=== PATIENT | female | born 1940 | race Caucasian/White ===

== ENCOUNTER 2019-01-09 21:53 | Inpatient (IN) | payer MEDICARE, OTHER ==
[~2019-01-09] VITALS: Ht 147.3 cm; Wt 65.5 kg
--- NOTE | 2019-01-09 22:29 | NUR ---
Patient laying on gurney, is nauseous and report 10/10 flank pain. She reports recent history of kidney stones.
[2019-01-09] MEDS ORDERED: ketorolac trometh. 30mg/ml inj. IV ONE (22:35)
[2019-01-09] MEDS ORDERED: normal saline 1000ML IV soln IVB ONE (22:35)
[2019-01-09] MEDS ORDERED: ondansetron/PF 4mg/2ml inj IV ONE (22:35)
[2019-01-09] MEDS ORDERED: morphine 4 MG/ML inj SYRINge IV PRN (22:35)
[2019-01-09 23:04] LABS: BASOPHILS # (AUTO) 0.1 X10'3 (0-0.2); BASOPHILS % (AUTO) 0.6 % (0-1); EOSINOPHILS # (AUTO) 0.1 X10'3 (0-0.9); HEMATOCRIT 40.2 % (35.0-45.0); HEMOGLOBIN 13.5 g/dl (12.0-16.0); LYMPHOCYTES # (AUTO) 1.6 X10'3 (1.1-4.8); LYMPHOCYTES % (AUTO) 15.1 % (21-51); MEAN CORPUSCULAR HEMOGLOBIN 28.7 PG (27.0-31.0); MEAN CORPUSCULAR HGB CONC 33.6 g/dL (33.0-36.5); MEAN CORPUSCULAR VOLUME 85.5 FL (78-98); MEAN PLATELET VOLUME 8.2 FL (7.4-10.4); MONOCYTES # (AUTO) 0.6 X10'3 (0-0.9); MONOCYTES % (AUTO) 5.7 % (2-12); NEUTROPHILS # (AUTO) 8.3 X10'3 (1.8-7.7); NEUTROPHILS % (AUTO) 77.6 % (42-75); PLATELET COUNT 324 X10'3 (140-440); RED CELL DISTRIBUTION WIDTH 14.2 % (11.5-14.5); WHITE BLOOD COUNT 10.6 X10'3 (4.5-11.0)
--- NOTE | 2019-01-09 23:16 | NUR ---
Patient up to bathroom
[2019-01-09 23:20] LABS: ALANINE AMINOTRANSFERASE 31 U/L (12-78); ALBUMIN/GLOBULIN RATIO 1.1 (1.1-1.5); ALKALINE PHOSPHATASE 175 IU/L (46-116); ANION GAP 12 (8-16); ASPARTATE AMINO TRANSFERASE 18 U/L (10-37); BILIRUBIN,TOTAL 0.5 MG/DL (0.1-1.0); BLOOD UREA NITROGEN 18 MG/DL (7-18); BUN/CREATININE RATIO 20.5 (6.6-38.0); CALCIUM 9.2 MG/DL (8.5-10.1); CHLORIDE 105 MMOL/L (99-107); CREATININE 0.88 MG/DL (0.40-0.90); GLUCOSE 251 MG/DL (70-104); LIPASE 164 U/L (73-393); SODIUM 141 MMOL/L (135-145); TOTAL CARBON DIOXIDE 24.3 MMOL/L (24-32); TOTAL PROTEIN 7.5 G/DL (6.4-8.2); eGFR 62 ML/MIN
[2019-01-09 23:29] LABS: POTASSIUM 4.5 MMOL/L (3.5-5.1)
[2019-01-09 23:47] LABS: CLARITY,URINE CLOUDY (Clear); COLOR,URINE RED (Yellow); GLUCOSE, URINE 250 mg/dl (Neg); KETONES,URINE 15 mg/dl (Neg); LEUKOCYTE ESTERASE ,URINE NEGATIVE (Neg); NITRITES, URINE NEGATIVE (Neg); OCCULT BLOOD,URINE LARGE (Neg); PH,URINE 6.5 (4.8-8.0); PROTEIN,URINE 100 mg/dl (Neg)
[2019-01-09 23:48] LABS: UA COLLECTION TYPE VOIDED
--- NOTE | 2019-01-09 23:57 | NUR ---
Back from CT.
[2019-01-09 23:59] LABS: BACTERIA,URINE FEW /HPF (Neg); MUCUS STRANDS NONE SEEN /LPF (Neg); RBC,URINE TNTC /HPF (0-2); SQUAMOUS EPITHELIAL CELL,UR FEW /LPF (FEW); WBC,URINE 0-4 /HPF (0-4)
[2019-01-10] MEDS ORDERED: morphine 4 MG/ML inj SYRINge IV ONE (01:15)
[2019-01-10] MEDS ORDERED: magnesium 4gm in 100ml NS 100 ML IV PRN (01:25)
[2019-01-10] MEDS ORDERED: magnesium hydroxide 30ml (MOM) UD suspension PO PRN (01:25)
[2019-01-10] MEDS ORDERED: potassium CL 10mEq/100ml bag 100 ML IV PRN ×2 (01:25)
[2019-01-10] MEDS ORDERED: HYDROcodone/acetaminophen 5mg/325mg tablet PO PRN (01:25)
[2019-01-10] MEDS ORDERED: acetaminophen 325mg tablet PO PRN ×2 (01:25)
[2019-01-10] MEDS ORDERED: potassium Cl 20 mEq SR tablet PO PRN ×2 (01:25)
[2019-01-10] MEDS ORDERED: magnesium Cl slow-release 64mg tablet PO PRN (01:25)
[2019-01-10] MEDS ORDERED: morphine 2 MG/ML inj. syringe IV PRN (01:25)
[2019-01-10] MEDS ORDERED: magnesium 2GM in 50ml NS 50 ML IV PRN (01:25)
--- NOTE | 2019-01-10 01:47 | NUR ---
Patient with hospitalist, pending admit
[2019-01-10] MEDS ORDERED: METF500T PO (01:50)
[2019-01-10] MEDS ORDERED: ASPI-611 PO (01:50)
[2019-01-10] MEDS ORDERED: CARV-49 PO (01:50)
[2019-01-10] MEDS ORDERED: CLOP75TA15 PO (01:50)
[2019-01-10] MEDS ORDERED: MESSAGE TO PHARMACY PO ONE (02:55)
[2019-01-10] MEDS ORDERED: dextrose 50%-water 50ml dispensing syringe IV PRN ×2 (02:55)
[2019-01-10] MEDS ORDERED: dextrose ORAL solution 15 GM/59 ML bottle PO PRN ×2 (02:55)
[2019-01-10] MEDS ORDERED: glucagon, human recombinant 1mg kit SUBCUT PRN (02:55)
--- NOTE | 2019-01-10 03:13 | NUR ---
Received report from JULIO CESAR Ward. Awaiting patient arrival to the unit.
[2019-01-10] MEDS: ondansetron/PF 4mg/2ml inj IV PRN ×2 (03:19→09:52)
--- NOTE | 2019-01-10 03:25 | NUR ---
Patient arrived to the unit via wheelchair, placed in room 354C. Patient awake and alert on room air, in no apparent distress. Call light and items of frequent use within reach. Will continue to monitor.
[2019-01-10 03:30] VITALS: BP 158/64
[2019-01-10] MEDS ORDERED: pneumococcal 23-VAL P-sac vacc 25 mcg/0.5ml vial IMVAC ONE (04:35)
--- NOTE | 2019-01-10 06:00 | NUR ---
Patient in room EN[facility] 354. I have received report from Lorena HARRELL and had the opportunity to ask questions and assume patient care.
[2019-01-10 06:14] LABS: ALBUMIN 3.6 G/DL (3.4-5.0); ANION GAP 8 (8-16); BLOOD UREA NITROGEN 14 MG/DL (7-18); BUN/CREATININE RATIO 19.2 (6.6-38.0); CALCIUM 8.2 MG/DL (8.5-10.1); CHLORIDE 107 MMOL/L (99-107); CREATININE 0.73 MG/DL (0.40-0.90); GLUCOSE 216 MG/DL (70-104); POTASSIUM 4.6 MMOL/L (3.5-5.1); SODIUM 141 MMOL/L (135-145); TOTAL CARBON DIOXIDE 26.3 MMOL/L (24-32); eGFR 78 ML/MIN
--- NOTE | 2019-01-10 06:19 | NUR ---
Problems reprioritized. Patient report given, questions answered & plan of care reviewed with JULIO CESAR Marsh.
[2019-01-10 07:04] VITALS: BP 123/71
[2019-01-10] MEDS: clopidogrel 75mg tablet PO SCH (07:43)
[2019-01-10] MEDS: aspirin 81mg tablet.DR PO SCH (07:43)
[2019-01-10] MEDS: K and/or MAG REPLACEMENT MC SCH (07:43)
[2019-01-10] MEDS: HYDROcodone/acetaminophen 10/325mg tab PO PRN ×3 (08:12→20:01)
[2019-01-10] MEDS: carvedilol 6.25mg tablet PO SCH ×2 (08:12→19:59)
--- NOTE | 2019-01-10 08:38 | NUR ---
DM Consult: Pt A1C 7.0; admit w/ kidney stone and 04/26 pain per EMR. Will need DM ed once stable prior to d/c. Addendum: 01/10/19 at [address] Amended: Links added.
--- NOTE | 2019-01-10 11:12 | NUR ---
07 Dr. Alcantar paged regarding pt not having diet order and has no IV fluids ordered. Awaiting call back. [phone] paged again regarding above. Awaiting call back. in to see patient and ordered flomax, NPO, and IVF @ 100, urology consult. Addendum: 01/10/19 at 1226 by Salma Borrego RN also stated okay to hold plavix at this time.
[2019-01-10] MEDS: tamsulosin 0.4mg capsule PO SCH ×3 (11:14→19:59)
[2019-01-10] MEDS: normal saline 1000ml 1,000 ML IV SCH ×2 (11:15→21:00)
[2019-01-10 11:27] VITALS: BP 151/55
[2019-01-10] MEDS: insulin Lispro (HumaLOG) vial - multi-dose SQ SCH ×2 (12:32→18:50)
[2019-01-10] MEDS: proCHLORperazine 10 MG/2 ml inj IV PRN (14:04)
--- NOTE | 2019-01-10 18:32 | NUR ---
Patient in room ENIO 354. I have received report from Salma HARRELL and had the opportunity to ask questions and assume patient care.
--- NOTE | 2019-01-10 18:34 | NUR ---
Problems reprioritized. Patient report given, questions answered & plan of care reviewed with Fanny HARRELL.
[2019-01-10 20:00] VITALS: BP 108/50
[2019-01-10] MEDS: insulin glargine (Lantus) pen - multi-dose SQ SCH (21:10)
[2019-01-10] MEDS: mag hydrox/Alum hydrox/simeth 30ml oral suspension PO PRN (21:10)
[2019-01-11] VITALS (17 sets, daily range): BP systolic 98–182; BP diastolic 44–86
[2019-01-11 05:59] LABS: ALBUMIN 2.9 G/DL (3.4-5.0); ANION GAP 8 (8-16); BLOOD UREA NITROGEN 10 MG/DL (7-18); BUN/CREATININE RATIO 13.7 (6.6-38.0); CALCIUM 8.1 MG/DL (8.5-10.1); CHLORIDE 110 MMOL/L (99-107); CREATININE 0.73 MG/DL (0.40-0.90); GLUCOSE 138 MG/DL (70-104); MAGNESIUM 2.1 MG/DL (1.5-2.4); POTASSIUM 3.7 MMOL/L (3.5-5.1); SODIUM 144 MMOL/L (135-145); TOTAL CARBON DIOXIDE 26.2 MMOL/L (24-32); eGFR 78 ML/MIN
[2019-01-11] MEDS: normal saline 1000ml 1,000 ML IV SCH ×2 (06:04→20:27)
--- NOTE | 2019-01-11 06:17 | NUR ---
Problems reprioritized. Patient report given, questions answered & plan of care reviewed with Franchesca HARRELL.
[2019-01-11 06:20] LABS: BASOPHILS % (AUTO) 0.6 % (0-1); EOSINOPHILS # (AUTO) 0.2 X10'3 (0-0.9); EOSINOPHILS % (AUTO) 3.4 % (0-6); HEMATOCRIT 33.4 % (35.0-45.0); LYMPHOCYTES # (AUTO) 2.1 X10'3 (1.1-4.8); MEAN CORPUSCULAR HEMOGLOBIN 28.7 PG (27.0-31.0); MEAN CORPUSCULAR HGB CONC 32.9 g/dL (33.0-36.5); MEAN PLATELET VOLUME 8.2 FL (7.4-10.4); MONOCYTES # (AUTO) 0.6 X10'3 (0-0.9); MONOCYTES % (AUTO) 9.7 % (2-12); NEUTROPHILS % (AUTO) 51.3 % (42-75); PLATELET COUNT 260 X10'3 (140-440); RED BLOOD COUNT 3.84 X10'6 (4.20-5.60); WHITE BLOOD COUNT 5.9 X10'3 (4.5-11.0)
[2019-01-11] MEDS: K and/or MAG REPLACEMENT MC SCH (07:00)
[2019-01-11] MEDS: aspirin 81mg tablet.DR PO SCH (08:00)
[2019-01-11] MEDS: clopidogrel 75mg tablet PO SCH (08:00)
[2019-01-11] MEDS: carvedilol 6.25mg tablet PO SCH ×2 (08:46→20:36)
[2019-01-11 12:50] LABS: ALANINE AMINOTRANSFERASE 22 U/L (12-78); ALBUMIN 3.1 G/DL (3.4-5.0); ALBUMIN/GLOBULIN RATIO 1.1 (1.1-1.5); ALKALINE PHOSPHATASE 118 IU/L (46-116); ANION GAP 8 (8-16); ASPARTATE AMINO TRANSFERASE 13 U/L (10-37); BILIRUBIN,TOTAL 0.3 MG/DL (0.1-1.0); BLOOD UREA NITROGEN 7 MG/DL (7-18); CALCIUM 7.8 MG/DL (8.5-10.1); CHLORIDE 110 MMOL/L (99-107); GLUCOSE 130 MG/DL (70-104); POTASSIUM 3.9 MMOL/L (3.5-5.1); SODIUM 144 MMOL/L (135-145); TOTAL CARBON DIOXIDE 26.4 MMOL/L (24-32); eGFR 81 ML/MIN
[2019-01-11 13:23] LABS: PARTIAL THROMBOPLASTIN TIME 27 SECONDS (22-32)
[2019-01-11] MEDS ORDERED: ringers solution, lacted 1,000 ML IV SCH (17:01)
[2019-01-11] MEDS ORDERED: proCHLORperazine 10 MG/2 ml inj IV PRN (17:05)
[2019-01-11] MEDS ORDERED: meperidine/PF 25mg/ml syringe IV PRN ×3 (17:05)
[2019-01-11] MEDS ORDERED: morphine 4 MG/ML inj SYRINge IV PRN ×2 (17:05)
[2019-01-11] MEDS ORDERED: ondansetron/PF 4mg/2ml inj IV PRN (17:05)
[2019-01-11] MEDS ORDERED: sevoflurane 250ml liquid IH ONE (17:12)
[2019-01-11] MEDS ORDERED: propofol inj 20 ML IV ONE (17:17)
[2019-01-11] MEDS ORDERED: midazolam 2 mg/2 ml injection ONE (17:17)
[2019-01-11] MEDS ORDERED: fentaNYL/PF 50MCG/1 ML 2ML syringe ONE (17:17)
[2019-01-11] MEDS ORDERED: ceFAZolin 1000mg inj ONE ×2 (17:45)
--- NOTE | 2019-01-11 17:55 | NUR ---
ADMITTED TO PACU FROM OR ACCOMPANIED BY ANESTHESIA. INTIAL PHYSICAL ASSESSMENT DONE AND RECORDED. AWAKE AND RESPONSE ON ARRIVE YO PACU, REPORT RECEIVED FROM ANESTHESIA.
[2019-01-11] MEDS ORDERED: HYDROcodone/acetaminophen 10/325mg tab PO ONE (18:20)
--- NOTE | 2019-01-11 18:45 | NUR ---
PACU DISCHARGE CRITERIA MET, REPORT GIVEN TO FLOOR. DENIES PAIN OR DISCOMFORT, TRANSFERRED TO ROOM IN STABLE GOOD CONDITION.
--- NOTE | 2019-01-11 18:45 | NUR ---
Patient in room EN[facility] 354. I have received report from Franchesca HARRELL and had the opportunity to ask questions and assume patient care. Patient is in OR at this time, will continue to monitor.
--- NOTE | 2019-01-11 18:50 | NUR ---
Received report from Cyndi HARRELL, will assess patient when she arrives to unit. Will continue to monitor.
[2019-01-11] MEDS: ondansetron/PF 4mg/2ml inj IV PRN (20:26)
[2019-01-11] MEDS: morphine 2 MG/ML inj. syringe IV PRN (20:26)
[2019-01-11] MEDS: tamsulosin 0.4mg capsule PO SCH (20:36)
[2019-01-11] MEDS: insulin glargine (Lantus) pen - multi-dose SQ SCH (21:00)
[2019-01-11] MEDS ORDERED: phenazopyridine 100mg tablet PO PRN ×2 (21:25→22:00)
--- NOTE | 2019-01-11 21:27 | NUR ---
Patient is having burning after procedure, notified Dr. Mohan, received order for pryidium as needed. Will continue to monitor.
[2019-01-11] MEDS ORDERED: oxybutynin 5mg tablet PO PRN (22:00)
--- NOTE | 2019-01-11 22:00 | NUR ---
Called Dr. Oden to request advice on pain medications for bladder related pain, received order for ditropan & Prydium PRN. Will continue to monitor.
[2019-01-11] MEDS: mag hydrox/Alum hydrox/simeth 30ml oral suspension PO PRN (22:25)
[2019-01-11] MEDS: HYDROcodone/acetaminophen 10/325mg tab PO PRN (22:26)
[2019-01-12] VITALS: BP 153/58
[2019-01-12] MEDS ORDERED: hydrALAZINE 20mg/ml inj. IV PRN (00:35)
[2019-01-12] MEDS: morphine 2 MG/ML inj. syringe IV PRN ×4 (01:37→15:13)
[2019-01-12] MEDS: ondansetron/PF 4mg/2ml inj IV PRN ×3 (02:33→18:43)
[2019-01-12] MEDS: proCHLORperazine 10 MG/2 ml inj IV PRN (03:02)
[2019-01-12] MEDS: normal saline 1000ml 1,000 ML IV SCH ×3 (05:16→23:05)
[2019-01-12] MEDS ORDERED: LIDOcaine 2% 10ml TOPICAL JELLY (Urojet) MM ONE (05:20)
[2019-01-12 05:58] LABS: BASOPHILS % (AUTO) 0.3 % (0-1); EOSINOPHILS % (AUTO) 0.3 % (0-6); HEMATOCRIT 37.5 % (35.0-45.0); HEMOGLOBIN 12.6 g/dl (12.0-16.0); LYMPHOCYTES # (AUTO) 0.8 X10'3 (1.1-4.8); LYMPHOCYTES % (AUTO) 9.2 % (21-51); MEAN CORPUSCULAR HEMOGLOBIN 28.7 PG (27.0-31.0); MEAN CORPUSCULAR HGB CONC 33.6 g/dL (33.0-36.5); MEAN CORPUSCULAR VOLUME 85.3 FL (78-98); MEAN PLATELET VOLUME 7.7 FL (7.4-10.4); MONOCYTES # (AUTO) 0.4 X10'3 (0-0.9); MONOCYTES % (AUTO) 4.1 % (2-12); NEUTROPHILS # (AUTO) 7.3 X10'3 (1.8-7.7); NEUTROPHILS % (AUTO) 86.1 % (42-75); PLATELET COUNT 270 X10'3 (140-440); RED CELL DISTRIBUTION WIDTH 14.1 % (11.5-14.5); WHITE BLOOD COUNT 8.5 X10'3 (4.5-11.0)
[2019-01-12 06:15] LABS: ALBUMIN 3.4 G/DL (3.4-5.0); ANION GAP 11 (8-16); BLOOD UREA NITROGEN 6 MG/DL (7-18); BUN/CREATININE RATIO 10.2 (6.6-38.0); CALCIUM 7.9 MG/DL (8.5-10.1); CHLORIDE 103 MMOL/L (99-107); CREATININE 0.59 MG/DL (0.40-0.90); GLUCOSE 188 MG/DL (70-104); MAGNESIUM 1.8 MG/DL (1.5-2.4); POTASSIUM 3.6 MMOL/L (3.5-5.1); SODIUM 138 MMOL/L (135-145); TOTAL CARBON DIOXIDE 23.9 MMOL/L (24-32); eGFR > 90 ML/MIN
--- NOTE | 2019-01-12 06:45 | NUR ---
Patient in room ENIO 354. I have received report from Karey HARRELL and had the opportunity to ask questions and assume patient care.
[2019-01-12 07:00] VITALS: BP 143/70
[2019-01-12] MEDS: K and/or MAG REPLACEMENT MC SCH (08:00)
[2019-01-12] MEDS: aspirin 81mg tablet.DR PO SCH (09:07)
[2019-01-12] MEDS: clopidogrel 75mg tablet PO SCH (09:08)
[2019-01-12] MEDS: carvedilol 6.25mg tablet PO SCH ×2 (09:08→20:43)
[2019-01-12 11:00] VITALS: BP 140/49
--- NOTE | 2019-01-12 14:06 | NUR ---
Initial: Pt admit with kidney stone now s/p left ureteral stent placement. Pt seen at bedside states her usual A1c is 6.1 and that she was previously seeing a DM counselor however they are no longer available and that she had an appointment set up to see an MD about DM however will have to reschedule d/t this admit. Pt provided with written and verbal DM ed with referral to outpatient DM class. All of patient's questions were answered at this time. RD contact information provided. Pt endorses a low appetite since admit. Pt documented with 50% PO intake on clear liquid diet for dinner last night however diet has since been advanced to CHO controlled, pending documentation of PO intake. Pt reports low PO intake at breakfast this morning r/t pain. Pt with no food preferences at this time however states she dislikes melons and likes pineapple, d/w dietary. Pt denies any food allergies or difficulty chewing/swallowing. LBM 01/09, pt denies nutrition therapy for constipation at this time. Will continue to follow. Recommendations: 1) Continue CHO controlled diet 2) Monitor need for additional bowel care 3) Wt per rx Addendum: 01/12/19 at [address] Amended: Links added.
--- NOTE | 2019-01-12 18:25 | NUR ---
Problems reprioritized. Patient report given, questions answered & plan of care reviewed with Karey HARRELL.
--- NOTE | 2019-01-12 18:30 | NUR ---
Patient in room EN[facility] 354. I have received report from Alex HARRELL and had the opportunity to ask questions and assume patient care. Patient resting in bed, respirations even. Will continue to monitor.
[2019-01-12] MEDS: HYDROcodone/acetaminophen 10/325mg tab PO PRN (18:43)
[2019-01-12 20:00] VITALS: BP 144/59
[2019-01-12] MEDS: mag hydrox/Alum hydrox/simeth 30ml oral suspension PO PRN (20:42)
[2019-01-12] MEDS: tamsulosin 0.4mg capsule PO SCH (20:43)
[2019-01-12] MEDS: insulin glargine (Lantus) pen - multi-dose SQ SCH (21:00)
[2019-01-13] VITALS: BP 139/62
[2019-01-13] MEDS: normal saline 1000ml 1,000 ML IV SCH (00:50)
--- NOTE | 2019-01-13 03:00 | NUR ---
Patient's IV leaking, removed, and patient refused new IV to be placed. Will continue to monitor.
[2019-01-13] MEDS: HYDROcodone/acetaminophen 10/325mg tab PO PRN ×2 (03:55→08:50)
--- NOTE | 2019-01-13 04:20 | NUR ---
Patient has had less output, bladder scan shows 175ml, denies discomfort and needs at this time, will continue to monitor.
[2019-01-13 05:17] LABS: BASOPHILS % (AUTO) 0.5 % (0-1); EOSINOPHILS # (AUTO) 0.1 X10'3 (0-0.9); EOSINOPHILS % (AUTO) 1.9 % (0-6); HEMATOCRIT 33.3 % (35.0-45.0); HEMOGLOBIN 11.3 g/dl (12.0-16.0); LYMPHOCYTES # (AUTO) 1.5 X10'3 (1.1-4.8); LYMPHOCYTES % (AUTO) 26.9 % (21-51); MEAN CORPUSCULAR VOLUME 85.3 FL (78-98); MEAN PLATELET VOLUME 7.5 FL (7.4-10.4); MONOCYTES # (AUTO) 0.7 X10'3 (0-0.9); MONOCYTES % (AUTO) 12.6 % (2-12); NEUTROPHILS # (AUTO) 3.1 X10'3 (1.8-7.7); NEUTROPHILS % (AUTO) 58.1 % (42-75); PLATELET COUNT 246 X10'3 (140-440); WHITE BLOOD COUNT 5.4 X10'3 (4.5-11.0)
[2019-01-13 05:29] LABS: ALBUMIN 2.9 G/DL (3.4-5.0); ANION GAP 7 (8-16); BLOOD UREA NITROGEN 7 MG/DL (7-18); BUN/CREATININE RATIO 10.8 (6.6-38.0); CALCIUM 7.6 MG/DL (8.5-10.1); CHLORIDE 108 MMOL/L (99-107); CREATININE 0.65 MG/DL (0.40-0.90); GLUCOSE 147 MG/DL (70-104); MAGNESIUM 2.1 MG/DL (1.5-2.4); POTASSIUM 3.6 MMOL/L (3.5-5.1); SODIUM 141 MMOL/L (135-145); TOTAL CARBON DIOXIDE 25.8 MMOL/L (24-32); eGFR 89 ML/MIN
[2019-01-13 06:00] VITALS: BP 138/62
--- NOTE | 2019-01-13 06:33 | NUR ---
Problems reprioritized. Patient report given, questions answered & plan of care reviewed with Carmelita HARRELL. Patient resting respirations even.
[2019-01-13] MEDS: clopidogrel 75mg tablet PO SCH (07:53)
[2019-01-13] MEDS: carvedilol 6.25mg tablet PO SCH (07:53)
[2019-01-13] MEDS: aspirin 81mg tablet.DR PO SCH (07:53)
[2019-01-13] MEDS: K and/or MAG REPLACEMENT MC SCH (08:00)
[2019-01-13] MEDS ORDERED: HYDR-4383 PO (08:29)
[2019-01-13] MEDS ORDERED: SULF1TAB49 PO (08:29)
[2019-01-13] MEDS: mag hydrox/Alum hydrox/simeth 30ml oral suspension PO PRN (08:49)
--- NOTE | 2019-01-13 10:15 | NUR ---
PROVIDED PATIENT WITH DISCHARGE INSTRUCTIONS WELL PACKET. NEW ANTIBIOTIC MEDICATION EXPLAINED TO PATIENT AND CALLED INTO [facility] IN [place], AND PATIENT PROVIDED WITH PHYSICAL RX FOR NORCO WHICH DR. VALENZUELA WROTE. PATIENT AWARE OF RECOMMENDATION TO FOLLOW UP WITH DR. GIMENEZ IN 2 WEEKS. DOES NOT HAVE IV. PATIENT DENIES ANY FURTHER QUESTIONS OR CONCERNS. WAITING FOR HER RIDE WHICH IS SUPPOSED TO BE HERE AT 1030.
== END 2019-01-13 11:00 | disposition home or self-care (01) | DRG 661 ==
LOC: ER 22:23 → SUR 3N 01-10 03:51 → CMPBEDREQ 01-10 19:35
PROVIDERS: ADMIT Hospitalist; ATTEND Internal Medicine
PROC: 0T778DZ Dilation of Left Ureter with Intraluminal Device, Via Natural or Artificial Opening Endoscopic (ICD-10-PCS; principal; 2019-01-11 17:12)
DX: N13.2 Hydronephrosis with renal and ureteral calculous obstruction (principal); E11.9 Type 2 diabetes mellitus without complications; E78.00 Pure hypercholesterolemia, unspecified; I10 Essential (primary) hypertension; I25.10 Atherosclerotic heart disease of native coronary artery without angina pectoris; N32.89 Other specified disorders of bladder; Z79.02 Long term (current) use of antithrombotics/antiplatelets; Z79.82 Long term (current) use of aspirin; Z87.442 Personal history of urinary calculi; Z87.891 Personal history of nicotine dependence; Z95.1 Presence of aortocoronary bypass graft; Z79.84 Long term (current) use of oral hypoglycemic drugs; Z79.899 Other long term (current) drug therapy
CPT/HCPCS: 36415; 71045; 74176; 76000; 80048; 80053; 81001; 82948; 83036; 83690; 83735; 85025; 85610; 85730; 87081; 93005; 96374; 96375; 96376; 99285; A4402; A4618; C1758; C1769; C2617; G0378; J0360; J0690; J0780; J1815; J1885; J2250; J2270; J2405; J2704; J3010; J7030; J7120

== ENCOUNTER 2019-02-25 07:50 | Inpatient (IN) | payer MEDICARE ==
[~2019-02-25] VITALS: Ht 147.3 cm; Wt 63.0 kg
[~2019-02-25 07:50] MED LIST: ASPI-611 PO; CARV-49 PO; CLOP75TA15 PO; HYDR-4383 PO; METF500T PO
[2019-02-25] MEDS ORDERED: ondansetron/PF 4mg/2ml inj IV ONE ×2 (08:20→11:55)
[2019-02-25] MEDS ORDERED: normal saline 1000ML IV soln IVB ONE (08:20)
[2019-02-25] MEDS: morphine 4 MG/ML inj SYRINge IV PRN ×2 (08:53→09:15)
[2019-02-25 09:09] LABS: BASOPHILS % (AUTO) 0.3 % (0-1); EOSINOPHILS # (AUTO) 0.1 X10'3 (0-0.9); EOSINOPHILS % (AUTO) 0.7 % (0-6); HEMATOCRIT 36.3 % (35.0-45.0); HEMOGLOBIN 12.4 g/dl (12.0-16.0); LYMPHOCYTES # (AUTO) 1.4 X10'3 (1.1-4.8); LYMPHOCYTES % (AUTO) 15.3 % (21-51); MEAN CORPUSCULAR HEMOGLOBIN 28.9 PG (27.0-31.0); MEAN CORPUSCULAR HGB CONC 34.3 g/dL (33.0-36.5); MEAN CORPUSCULAR VOLUME 84.2 FL (78-98); MEAN PLATELET VOLUME 7.8 FL (7.4-10.4); MONOCYTES # (AUTO) 0.8 X10'3 (0-0.9); MONOCYTES % (AUTO) 8.9 % (2-12); NEUTROPHILS # (AUTO) 6.8 X10'3 (1.8-7.7); NEUTROPHILS % (AUTO) 74.8 % (42-75); PLATELET COUNT 297 X10'3 (140-440); RED BLOOD COUNT 4.31 X10'6 (4.20-5.60); RED CELL DISTRIBUTION WIDTH 13.4 % (11.5-14.5); WHITE BLOOD COUNT 9.1 X10'3 (4.5-11.0)
[2019-02-25 09:42] LABS: ALANINE AMINOTRANSFERASE 22 U/L (12-78); ALBUMIN 3.6 G/DL (3.4-5.0); ALBUMIN/GLOBULIN RATIO 0.9 (1.1-1.5); ALKALINE PHOSPHATASE 126 IU/L (46-116); ANION GAP 12 (8-16); ASPARTATE AMINO TRANSFERASE 15 U/L (10-37); BILIRUBIN,TOTAL 0.4 MG/DL (0.1-1.0); BLOOD UREA NITROGEN 16 MG/DL (7-18); BUN/CREATININE RATIO 13.2 (6.6-38.0); CALCIUM 8.7 MG/DL (8.5-10.1); CHLORIDE 104 MMOL/L (99-107); CREATININE 1.21 MG/DL (0.40-0.90); GLUCOSE 171 MG/DL (70-104); LIPASE 168 U/L (73-393); POTASSIUM 4.1 MMOL/L (3.5-5.1); SODIUM 139 MMOL/L (135-145); TOTAL CARBON DIOXIDE 22.6 MMOL/L (24-32); TOTAL PROTEIN 7.4 G/DL (6.4-8.2); eGFR 43 ML/MIN
--- NOTE | 2019-02-25 10:49 | NUR ---
PT REFUSING JUJU ARANA AT THIS TIME STATES SHE WILL PROVIDE URINE SAMPLE AFTER DRINKING SOME WATER.
[2019-02-25 11:25] LABS: CLARITY,URINE CLEAR (Clear); COLOR,URINE STRAW (Yellow); GLUCOSE, URINE NEGATIVE (Neg); KETONES,URINE 15 mg/dl (Neg); LEUKOCYTE ESTERASE ,URINE NEGATIVE (Neg); NITRITES, URINE NEGATIVE (Neg); OCCULT BLOOD,URINE LARGE (Neg); PH,URINE 6.5 (4.8-8.0); PROTEIN,URINE 30 mg/dl (Neg); UROBILINOGEN,URINE 0.2 E.U/dL (0.2-1.0)
[2019-02-25 11:33] LABS: UA COLLECTION TYPE CLN CATCH MIDSTREAM
[2019-02-25 11:38] LABS: BACTERIA,URINE FEW /HPF (Neg); MUCUS STRANDS FEW /LPF (Neg); RBC,URINE 20-50 /HPF (0-2); SQUAMOUS EPITHELIAL CELL,UR FEW /LPF (FEW); WBC,URINE 0-4 /HPF (0-4)
[2019-02-25] MEDS ORDERED: ketorolac tromethamine 15mg/ml inj. IV ONE (11:55)
[2019-02-25] MEDS ORDERED: morphine 2 MG/ML inj. syringe IV PRN ×2 (13:50)
[2019-02-25] MEDS ORDERED: ondansetron/PF 4mg/2ml inj IV PRN (13:50)
[2019-02-25] MEDS ORDERED: HYDROcodone/acetaminophen 5mg/325mg tablet PO PRN (13:50)
[2019-02-25] MEDS ORDERED: mag hydrox/Alum hydrox/simeth 30ml oral suspension PO PRN (13:50)
[2019-02-25] MEDS ORDERED: magnesium hydroxide 30ml (MOM) UD suspension PO PRN (13:50)
[2019-02-25] MEDS ORDERED: acetaminophen 325mg tablet PO PRN (13:50)
[2019-02-25] MEDS ORDERED: MULT-933 PO (14:32)
--- NOTE | 2019-02-25 16:07 | NUR ---
attempted to call report to JULIO CESAR Morrison
[2019-02-25] MEDS: normal saline 1000ml 1,000 ML IV SCH (16:59)
[2019-02-25 17:31] VITALS: BP 125/53
--- NOTE | 2019-02-25 17:32 | NUR ---
Received report from JULIO CESAR Carpio. Patient arrived to the floor. VSS. no complaints. Call light in reach.
[2019-02-25] MEDS ORDERED: metoclopramide 5 mg/ml inj IV PRN (18:00)
[2019-02-25] MEDS: HYDROcodone/acetaminophen 10/325mg tab PO PRN (18:27)
--- NOTE | 2019-02-25 18:30 | NUR ---
Problems reprioritized. Patient report given, questions answered & plan of care reviewed with JULIO CESAR RANDALL.
--- NOTE | 2019-02-25 18:43 | NUR ---
Received report from Laura HARRELL pt is finsihed with lis, on RA, in no apparent distress, bed alarm on Addendum: 02/25/19 at 1844 by Charu Ansari RN Wrong patient
--- NOTE | 2019-02-25 18:44 | NUR ---
Received report from Madison HARRELL pt is in bed, just given pain meds, call light and items of freq use within reach.
[2019-02-25 19:00] VITALS: BP 130/63
[2019-02-25] MEDS: metFORMIN 500mg tablet PO SCH (20:26)
[2019-02-25] MEDS: carvedilol 6.25mg tablet PO SCH (20:26)
[2019-02-25] MEDS ORDERED: tamsulosin 0.4mg capsule PO SCH (21:00)
[2019-02-26 00:30] VITALS: BP 116/57
[2019-02-26] MEDS: normal saline 1000ml 1,000 ML IV SCH (02:08)
[2019-02-26] MEDS: HYDROcodone/acetaminophen 10/325mg tab PO PRN (03:14)
[2019-02-26 06:08] LABS: ALBUMIN 2.8 G/DL (3.4-5.0); ANION GAP 8 (8-16); BLOOD UREA NITROGEN 9 MG/DL (7-18); BUN/CREATININE RATIO 7.1 (6.6-38.0); CALCIUM 7.8 MG/DL (8.5-10.1); CHLORIDE 108 MMOL/L (99-107); CREATININE 1.26 MG/DL (0.40-0.90); GLUCOSE 124 MG/DL (70-104); POTASSIUM 3.7 MMOL/L (3.5-5.1); SODIUM 140 MMOL/L (135-145); TOTAL CARBON DIOXIDE 23.8 MMOL/L (24-32); eGFR 41 ML/MIN
[2019-02-26 06:14] LABS: BASOPHILS % (AUTO) 0.4 % (0-1); EOSINOPHILS # (AUTO) 0.1 X10'3 (0-0.9); EOSINOPHILS % (AUTO) 1.6 % (0-6); HEMATOCRIT 29.7 % (35.0-45.0); HEMOGLOBIN 10.1 g/dl (12.0-16.0); LYMPHOCYTES # (AUTO) 1.5 X10'3 (1.1-4.8); LYMPHOCYTES % (AUTO) 20.7 % (21-51); MEAN CORPUSCULAR HEMOGLOBIN 29.4 PG (27.0-31.0); MEAN CORPUSCULAR HGB CONC 34.1 g/dL (33.0-36.5); MEAN CORPUSCULAR VOLUME 86.1 FL (78-98); MEAN PLATELET VOLUME 7.9 FL (7.4-10.4); MONOCYTES # (AUTO) 0.8 X10'3 (0-0.9); MONOCYTES % (AUTO) 10.7 % (2-12); NEUTROPHILS # (AUTO) 4.7 X10'3 (1.8-7.7); NEUTROPHILS % (AUTO) 66.6 % (42-75); PLATELET COUNT 231 X10'3 (140-440); RED BLOOD COUNT 3.45 X10'6 (4.20-5.60); RED CELL DISTRIBUTION WIDTH 13.2 % (11.5-14.5); WHITE BLOOD COUNT 7.1 X10'3 (4.5-11.0)
--- NOTE | 2019-02-26 06:16 | NUR ---
Gave report to Alex HARRELL pt is resting on RA, call light and items of freq use within reach.
--- NOTE | 2019-02-26 06:19 | NUR ---
Patient in room ENIO 346. I have received report from Jennifer HARRELL and had the opportunity to ask questions and assume patient care.
[2019-02-26 07:00] VITALS: BP 111/37
[2019-02-26] MEDS: metFORMIN 500mg tablet PO SCH (07:51)
[2019-02-26] MEDS: carvedilol 6.25mg tablet PO SCH (07:51)
[2019-02-26] MEDS ORDERED: clopidogrel 75mg tablet PO SCH (08:00)
[2019-02-26] MEDS ORDERED: multivitamins, therapeutics tablet PO SCH (08:00)
[2019-02-26] MEDS ORDERED: aspirin 81mg tab.chew PO SCH (08:30)
[2019-02-26] MEDS ORDERED: HYDR4TAB45 PO (10:22)
[2019-02-26 10:52] VITALS: BP 118/58
--- NOTE | 2019-02-26 13:10 | NUR ---
Discharged patient home. Discharge instructions given to patient, patient verbalized understanding of all instructions made. New prescription for Dilaudid given to patient. Peripheral IV catheter removed, tip intact. Instructed patient to ensure she has all her belongings with her before leaving.
== END 2019-02-26 13:22 | disposition home or self-care (01) | DRG 694 ==
LOC: ER 07:50 → ED HOLD 13:55 → SUR 3N 17:07
PROVIDERS: ADMIT Internal Medicine; ATTEND Internal Medicine
DX: N13.2 Hydronephrosis with renal and ureteral calculous obstruction (principal); E11.9 Type 2 diabetes mellitus without complications; E78.00 Pure hypercholesterolemia, unspecified; I10 Essential (primary) hypertension; I25.10 Atherosclerotic heart disease of native coronary artery without angina pectoris; Z79.82 Long term (current) use of aspirin; Z87.442 Personal history of urinary calculi; Z87.891 Personal history of nicotine dependence; Z79.02 Long term (current) use of antithrombotics/antiplatelets; Z95.1 Presence of aortocoronary bypass graft; Z79.84 Long term (current) use of oral hypoglycemic drugs
CPT/HCPCS: 36415; 74176; 80048; 80053; 81001; 82948; 83690; 85025; 87081; 96361; 96374; 96375; 96376; 99285; G0378; J1885; J2270; J2405; J7030

== ENCOUNTER 2019-04-03 20:27 | Emergency (ER) | payer MEDICARE ==
[~2019-04-03] VITALS: Ht 149.9 cm; Wt 63.6 kg
[~2019-04-03 20:27] MED LIST changes: -HYDR-4383 PO; +HYDR4TAB45 PO; +MULT-933 PO
--- NOTE | 2019-04-03 21:15 | NUR ---
pt unable to obtain a position of comfort.
[2019-04-03] MEDS ORDERED: cyclobenzaprine 10mg tablet PO ONE (21:30)
--- NOTE | 2019-04-03 21:36 | NUR ---
PT TO X RAY
--- NOTE | 2019-04-03 21:38 | NUR ---
PT BACK FROM XRAY TO BATHROOM NOW
--- NOTE | 2019-04-03 21:41 | NUR ---
[employer] GIVING PT EKG NOW
[2019-04-03] MEDS ORDERED: DICL100G15 TOP (22:04)
[2019-04-03] MEDS ORDERED: CYCL-1 PO (22:04)
[2019-04-03 22:22] VITALS: BP 102/68
== END 2019-04-03 22:16 | disposition home or self-care (01) ==
LOC: ER 20:27
DX: M54.9 Dorsalgia, unspecified (principal); I25.10 Atherosclerotic heart disease of native coronary artery without angina pectoris; E78.00 Pure hypercholesterolemia, unspecified; I12.9 Hypertensive chronic kidney disease with stage 1 through stage 4 chronic kidney disease, or unspecified chronic kidney disease; N18.9 Chronic kidney disease, unspecified; E11.8 Type 2 diabetes mellitus with unspecified complications; I25.810 Atherosclerosis of coronary artery bypass graft(s) without angina pectoris; Z98.61 Coronary angioplasty status; Z87.891 Personal history of nicotine dependence; Z91.5 Personal history of self-harm; F19.90 Other psychoactive substance use, unspecified, uncomplicated; Z79.899 Other long term (current) drug therapy
CPT/HCPCS: 71046; 93005; 99283

== ENCOUNTER 2019-04-05 17:57 | Emergency (ER) | payer MEDICARE ==
[~2019-04-05] VITALS: Ht 147.3 cm; Wt 61.7 kg
[~2019-04-05 17:57] MED LIST changes: +CYCL-1 PO; +DICL100G15 TOP
[2019-04-05 17:59] VITALS: BP 113/58
[2019-04-05] MEDS ORDERED: ketorolac trometh inj. 60 MG/2 ML VIAL IM ONE (18:20)
[2019-04-05] MEDS ORDERED: NAPR-56 PO (18:20)
== END 2019-04-05 18:51 | disposition home or self-care (01) ==
LOC: ER 17:58
DX: S46.911A Strain of unspecified muscle, fascia and tendon at shoulder and upper arm level, right arm, initial encounter (principal); I25.10 Atherosclerotic heart disease of native coronary artery without angina pectoris; E78.00 Pure hypercholesterolemia, unspecified; I10 Essential (primary) hypertension; E11.9 Type 2 diabetes mellitus without complications; F10.99 Alcohol use, unspecified with unspecified alcohol-induced disorder; Z87.442 Personal history of urinary calculi; Z95.1 Presence of aortocoronary bypass graft; Z79.82 Long term (current) use of aspirin; Z79.84 Long term (current) use of oral hypoglycemic drugs; Z79.899 Other long term (current) drug therapy; X58.XXXA Exposure to other specified factors, initial encounter; Y93.89 Activity, other specified; Y92.89 Other specified places as the place of occurrence of the external cause; Y99.8 Other external cause status; Y90.9 Presence of alcohol in blood, level not specified
CPT/HCPCS: 96372; 99283; J1885

== ENCOUNTER 2021-10-11 06:33 | Day surgery (SDC) | payer MEDICARE ==
[~2021-10-11] VITALS: Ht 149.9 cm; Wt 65.2 kg
[2021-10-11] VITALS (11 sets, daily range): BP systolic 105–166; BP diastolic 35–66
[2021-10-11] MEDS ORDERED: diphenhydrAMINE 25mg capsule PO PRN (07:05)
[2021-10-11] MEDS ORDERED: normal saline 1,000 ML IV SCH (07:05)
[2021-10-11] MEDS ORDERED: NITR0.4T48 SL (07:29)
[2021-10-11] MEDS ORDERED: METF-1203 PO (07:29)
[2021-10-11] MEDS ORDERED: ISOS30TA84 PO (07:29)
[2021-10-11] MEDS ORDERED: ROSU40TA PO (07:31)
[2021-10-11] MEDS ORDERED: OMEG1CAP13 PO (07:31)
[2021-10-11] MEDS ORDERED: METF-438 PO (07:33)
[2021-10-11] MEDS ORDERED: Magnesium PO (07:35)
[2021-10-11 07:40] LABS: BASOPHILS % (AUTO) 0.6 % (0-1); EOSINOPHILS # (AUTO) 0.2 X10'3 (0-0.9); EOSINOPHILS % (AUTO) 3.4 % (0-6); HEMATOCRIT 39.1 % (35.0-45.0); HEMOGLOBIN 13.1 g/dl (12.0-16.0); LYMPHOCYTES # (AUTO) 1.6 X10'3 (1.1-4.8); LYMPHOCYTES % (AUTO) 31.7 % (21-51); MEAN CORPUSCULAR HEMOGLOBIN 28.3 PG (27.0-31.0); MEAN CORPUSCULAR HGB CONC 33.6 g/dL (33.0-36.5); MEAN CORPUSCULAR VOLUME 84.2 FL (78-98); MEAN PLATELET VOLUME 7.7 FL (7.4-10.4); MONOCYTES # (AUTO) 0.5 X10'3 (0-0.9); MONOCYTES % (AUTO) 10.9 % (2-12); NEUTROPHILS # (AUTO) 2.6 X10'3 (1.8-7.7); NEUTROPHILS % (AUTO) 53.4 % (42-75); PLATELET COUNT 272 X10'3 (140-440); RED BLOOD COUNT 4.64 X10'6 (4.20-5.60); RED CELL DISTRIBUTION WIDTH 14.2 % (11.5-14.5); WHITE BLOOD COUNT 4.9 X10'3 (4.5-11.0)
[2021-10-11 08:01] LABS: ALBUMIN 3.8 G/DL (3.4-5.0); ANION GAP 8 (8-16); BLOOD UREA NITROGEN 12 MG/DL (7-18); BUN/CREATININE RATIO 14.3 (6.6-38.0); CALCIUM 8.6 MG/DL (8.5-10.1); CHLORIDE 107 MMOL/L (99-107); CREATININE 0.84 MG/DL (0.40-0.90); GLUCOSE 156 MG/DL (70-104); MAGNESIUM 2.1 MG/DL (1.5-2.4); POTASSIUM 4.1 MMOL/L (3.5-5.1); SODIUM 139 MMOL/L (135-145); TOTAL CARBON DIOXIDE 23.9 MMOL/L (24-32); eGFR 65 ML/MIN
[2021-10-11] MEDS ORDERED: iohexol 300mg/ml 100ml inj. ONE ×2 (09:03→09:58)
[2021-10-11] MEDS ORDERED: LIDOcaine 1% 30ml preserv. free vial ONE (09:04)
[2021-10-11] MEDS ORDERED: midazolam 1 mg/ML 2ml injection ONE (09:04)
[2021-10-11] MEDS ORDERED: heparin 1,000unit/ml 10ml vial 10 ML ONE (09:04)
[2021-10-11] MEDS ORDERED: fentaNYL/PF 50MCG/1 ML 2ML syringe ONE (09:04)
[2021-10-11] MEDS ORDERED: proCHLORperazine 10 MG/2 ml inj IV PRN (10:40)
[2021-10-11] MEDS ORDERED: HYDROcodone/acetaminophen 5mg/325mg tablet PO PRN (10:40)
[2021-10-11] MEDS ORDERED: ondansetron/PF 4mg/2ml inj IV PRN (10:40)
[2021-10-11] MEDS ORDERED: HYDROcodone/acetaminophen 10/325mg tab PO PRN (10:40)
[2021-10-11] MEDS ORDERED: acetaminophen 325mg tablet PO PRN (10:40)
== END 2021-10-11 13:58 | disposition home or self-care (01) ==
LOC: SSTAY O 06:33
PROVIDERS: ATTEND Internal Medicine Cardiovascular Disease
DX: R07.89 Other chest pain (principal); I25.118 Atherosclerotic heart disease of native coronary artery with other forms of angina pectoris; I65.23 Occlusion and stenosis of bilateral carotid arteries; I10 Essential (primary) hypertension; E78.5 Hyperlipidemia, unspecified; E11.9 Type 2 diabetes mellitus without complications; K21.9 Gastro-esophageal reflux disease without esophagitis; Z86.73 Personal history of transient ischemic attack (TIA), and cerebral infarction without residual deficits; Z79.84 Long term (current) use of oral hypoglycemic drugs; Z79.899 Other long term (current) drug therapy; Z95.1 Presence of aortocoronary bypass graft; Z87.442 Personal history of urinary calculi; Z87.891 Personal history of nicotine dependence
CPT/HCPCS: 36415; 80048; 82948; 83735; 85025; 85610; 93005; 93459; 99152; 99153; C1760; C1769; C1894; J1644; J2250; J3010; J3490; J7030; Q0163; Q9967; A4620; A6258

== ENCOUNTER 2024-07-11 09:27 | Day surgery (SDC) | payer MEDICARE ==
[~2024-07-11] VITALS: Ht 147.3 cm; Wt 69.3 kg
[2024-07-11] VITALS (9 sets, daily range): BP systolic 113–165; BP diastolic 46–64; PULSE 46–61; RESP 10–14; TEMP 98.5; O2SAT 96–99
[~2024-07-11 09:27] MED LIST changes: -DICL100G15 TOP; -HYDR4TAB45 PO; +ISOS30TA84 PO; +METF-438 PO; -METF500T PO; -MULT-933 PO; +Magnesium PO; +NITR0.4T48 SL; +OMEG-5 PO; +ROSU40TA PO
[2024-07-11 10:08] LABS: BASOPHILS % (AUTO) 0.6 % (0-1); EOSINOPHILS # (AUTO) 0.2 X10'3 (0-0.9); EOSINOPHILS % (AUTO) 3.3 % (0-6); HEMATOCRIT 33.5 % (35.0-45.0); HEMOGLOBIN 10.9 g/dl (12.0-16.0); LYMPHOCYTES # (AUTO) 1.5 X10'3 (1.1-4.8); LYMPHOCYTES % (AUTO) 26.1 % (21-51); MEAN CORPUSCULAR HEMOGLOBIN 27.4 PG (27.0-31.0); MEAN CORPUSCULAR HGB CONC 32.4 g/dL (33.0-36.5); MEAN CORPUSCULAR VOLUME 84.5 FL (78-98); MEAN PLATELET VOLUME 7.8 FL (7.4-10.4); MONOCYTES # (AUTO) 0.6 X10'3 (0-0.9); MONOCYTES % (AUTO) 9.6 % (2-12); NEUTROPHILS # (AUTO) 3.6 X10'3 (1.8-7.7); NEUTROPHILS % (AUTO) 60.4 % (42-75); PLATELET COUNT 256 X10'3 (140-440); RED BLOOD COUNT 3.97 X10'6 (4.20-5.60); RED CELL DISTRIBUTION WIDTH 15.5 % (11.5-14.5); WHITE BLOOD COUNT 5.9 X10'3 (4.5-11.0)
[2024-07-11 10:17] LABS: ALBUMIN 3.6 G/DL (3.4-5.0); ANION GAP 8 (8-16); BLOOD UREA NITROGEN 12 MG/DL (7-18); BUN/CREATININE RATIO 14.1 (10.0-20.0); CALCIUM 8.5 MG/DL (8.5-10.1); CHLORIDE 107 MMOL/L (99-107); CREATININE 0.85 MG/DL (0.40-0.90); GLUCOSE 155 MG/DL (70-104); POTASSIUM 4.3 MMOL/L (3.5-5.1); SODIUM 143 MMOL/L (135-145); TOTAL CARBON DIOXIDE 28.4 MMOL/L (24-32); eCRCL 34 ML/MIN; eGFR 64 ML/MIN
[2024-07-11] MEDS ORDERED: METO-395 PO (10:17)
[2024-07-11] MEDS ORDERED: KRIL1CAP40 PO (10:17)
[2024-07-11] MEDS ORDERED: PANT40TA54 PO (10:17)
[2024-07-11] MEDS ORDERED: METF-1203 PO (10:17)
[2024-07-11 10:19] LABS: PROTHROMBIN TIME 10.9 SECONDS (9.0-12.0)
[2024-07-11] MEDS: sodium bicarbonate 1meq/ml syr 150 ML in dextrose 5%-water 1,000 ML IV ONE (10:27)
[2024-07-11] MEDS: diphenhydrAMINE 25mg capsule PO PRN (10:27)
[2024-07-11] MEDS: normal saline 1,000 ML IV SCH (10:28)
[2024-07-11] MEDS ORDERED: LIDOcaine 1% 30ml preserv. free vial ONE (11:45)
[2024-07-11] MEDS ORDERED: verapamil 2.5 mg/ml inj IV ONE (11:45)
[2024-07-11] MEDS ORDERED: heparin 1,000unit/ml 10ml vial 10 ML ONE (11:46)
[2024-07-11] MEDS ORDERED: iohexol 350 MG/ML 50ML vial IV ONE ×2 (11:46→13:05)
[2024-07-11] MEDS ORDERED: midazolam 1 mg/ML 2ml injection ONE (11:46)
[2024-07-11] MEDS ORDERED: fentaNYL/PF 50MCG/1 ML 2ML syringe ONE (11:46)
[2024-07-11] MEDS ORDERED: iohexol 350MG/ML 100ml bottle IV ONE ×2 (11:46→13:05)
[2024-07-11] MEDS ORDERED: nitroGLYCERIN 500mcg/5mL D5W 5 ML IV ONE (11:47)
[2024-07-11] MEDS ORDERED: HYDROcodone/acetaminophen 5mg/325mg tablet PO PRN (13:45)
[2024-07-11] MEDS ORDERED: proCHLORperazine 10 MG/2 ml inj IV PRN (13:45)
[2024-07-11] MEDS ORDERED: ondansetron/PF 4mg/2ml inj IV PRN (13:45)
[2024-07-11] MEDS ORDERED: HYDROcodone/acetaminophen 10/325mg tab PO PRN (13:45)
== END 2024-07-11 16:45 | disposition home or self-care (01) ==
LOC: SSTAY O 09:27
PROVIDERS: ATTEND Internal Medicine Cardiovascular Disease
DX: I25.118 Atherosclerotic heart disease of native coronary artery with other forms of angina pectoris (principal); I65.23 Occlusion and stenosis of bilateral carotid arteries; I10 Essential (primary) hypertension; E78.5 Hyperlipidemia, unspecified; E11.9 Type 2 diabetes mellitus without complications; K21.9 Gastro-esophageal reflux disease without esophagitis; Z79.899 Other long term (current) drug therapy
CPT/HCPCS: 36415; 80048; 82948; 83735; 85025; 85610; 93005; 93459; 99152; 99153; A4615; A6258; C1725; C1760; C1894; J1644; J2003; J2250; J3010; J3490; J7030; J7070; Q0163; Q9967; Z7610